=== PATIENT | female | born 1995 | race Caucasian/White ===

== ENCOUNTER 2020-02-06 09:41 | Observation (INO) | payer OTHER, SELFPAY ==
[2020-02-06] VITALS (7 sets, daily range): BP systolic 96–127; BP diastolic 70–101; PULSE 67–85; TEMP 36.6; BMI 36.0
--- NOTE | 2020-02-06 09:56 | OBADM ---
This patient, Avis Thapa, admitted to the OB room OB Post 117 for observation. Patient/family oriented to hospital policies and general routines including ID bracelet, bed and alarms, visiting hours, pain management, procedures, bathroom and other care routines, personal items, smoking policy, room service/diet, and visiting hours. Patient/Family are encouraged to report perceived risks to care and to ask questions if they do not understand what they are told or what they should do.
[2020-02-06 10:23] LABS: Add Urine Microscopic? YES; Appearance Urine Cloudy (Clear); Bacteria Urine 2+ /hpf; Bilirubin Urine Negative (Negative); Blood Urine 2+ (Negative); Color Urine Yellow (Yellow); Glucose Urine UA Negative (Negative); Ketones Urine Negative (Negative); Leukocyte Esterase Ur Negative LEU/UL (NEGATIVE); Mucus Urine Rare /lpf; Nitrate Urine Negative (Negative); Protein Urine Negative (Negative); RBC Urine 51-75 /hpf (0-2); Specific Grav Ur 1.011 (1.001-1.035); Squamous Epithelial Cell Urine Moderate /hpf (Few); Urobilinogen Urine Negative mg/dL (<2.0)
[2020-02-06] MEDS: NITROFURANTOIN MONOHYD MACROCR 100 MG CAP PO (11:52)
--- NOTE | 2020-02-15 09:18 | P.PNOB_ITS ---
OB - Triage/Final Diagnosis Visit Information Date of evaluation: 02/06/20 Reason for evaluation: threatened labor Evaluation Laboratory results: Laboratory Tests 02/06/20 10:11 Urine Color Yellow Urine Appearance Cloudy H Urine pH 7.0 Ur Specific [place] 1.011 Urine Protein Negative Urine Glucose (UA) Negative Urine Ketones Negative Ur Blood (Man) 2+ H Urine Nitrate Negative Urine Bilirubin Negative Urine Urobilinogen Negative Ur Leukocyte Esterase Negative Urine RBC 51-75 H Urine WBC 7-9 H Ur Squamous Epith Cells Moderate H Urine Bacteria 2+ H Urine Mucus Rare
== END 2020-02-06 11:55 | disposition home or self-care (01) ==
LOC: ANHOBPP 11:43 → ANHLDR 17:56
PROVIDERS: Admitting Provider Student in an Organized Health Care Education/Training Program; Visit Provider Student in an Organized Health Care Education/Training Program
DX: O47.03 False labor before 37 completed weeks of gestation, third trimester (principal); Z3A.34 34 weeks gestation of pregnancy
CPT/HCPCS: 81001; 87086; 87088; A9270; G0378; G0379

== ENCOUNTER 2020-03-05 08:49 | Inpatient (IN) | payer OTHER, SELFPAY ==
[2020-03-05] VITALS (92 sets, daily range): BP systolic 98–163; BP diastolic 12–137; PULSE 64–104; TEMP 36.8–37.1; O2SAT 96–100; BMI 38.5
[2020-03-05] MEDS: miSOPROStol 25 MCG TABLET VAGINAL (10:27)
[2020-03-05 10:31] LABS: Basophils Percent Auto 0.1 % (0.2-1.2); Eosinophils Absolute Auto 0.1 K/mm3 (0-0.3); Eosinophils Percent Auto 0.9 % (0-4.4); Hematocrit 33.5 % (37.0-47.0); Hemoglobin 11.3 g/dL (12.0-15.0); Immature Granulocyte Absolute 0.05 K/mm3 (0.00-0.031); Immature Granulocyte Percent A 0.6 % (0-0.5); Lymphocytes Absolute Auto 1.14 K/mm3 (0.9-3.2); Lymphocytes Percent Auto 13.5 % (18.3-44.2); Mean Corpuscular HGB Conc 33.7 g/dl (32-36); Mean Corpuscular Hemoglobin 28.5 pg (26-34); Mean Corpuscular Volume 84.6 fl (80-100); Mean Platelet Volume 11.4 fl (7.4-10.4); Monocytes Absolute Auto 0.6 K/mm3 (0.1-0.6); Monocytes Percent Auto 6.6 % (2.6-8.5); Neutrophils Absolute Auto 6.6 K/mm3 (1.3-6.7); Neutrophils Percent Auto 78.3 % (45.5-73.1); Platelet Count Result 224 k/mm3 (150-375); Red Blood Count 3.96 M/mm3 (4.2-5.4); Red Cell Distribution Width 13.5 % (11.5-14.5); White Blood Count 8.5 K/mm3 (4.5-10.0)
[2020-03-05 10:44] LABS: Uric Acid 4.1 mg/dL (2.5-7.5)
[2020-03-05] MEDS: LACTATED RINGERS 1,000 ML 125 ML IV CONT (10:52)
[2020-03-05] MEDS: AMPICILLIN 2 GM/NS 100 ML 2 GM/100 ML BAG IVPB (10:52)
--- NOTE | 2020-03-05 10:58 | WPDHPUPDATE1 ---
History and Physical Update Update Date/Time: 03/05/20 10:58 24 yo at 38w0d who presents for IOL due to worsening gestational HTN. Pt was seen in the office today and was noted to have BP of 160/99. She reports a persistent REY since last Tuesday. She reports a large increase in LE edema. She denies any scotoma or RUQ pain. Pt G1 was complicated by PP HTN. Pt was noted to have 1+ protein on UA in the office. She endorses good FM and denies vaginal bleeding or leakage of fluid. History and Physical has been reviewed, including an updated exam of the patient. There are NO changes in the patient's condition. Risks, benefits, and alternatives have been discussed and questions answered. Patient agrees to proceed with procedure. A/P: 24 yo at 38w0d with worsening GHTN admit to L&D routine admission orders Rh+ GBS +, will need PCN in labor PIH labwork plan for IOL due to worsening BP continue to monitor BP, if continues to have severe range BP with proteinuria, will start magnesium cvx 1cm, plan for cytotec ripening FHT cat 1 no ctx on toco continuous EFM
[2020-03-05 11:11] LABS: Creatinine Urine 63.6 mg/dL; Total Protein Urine Random 33 mg/dL
[2020-03-05 11:24] LABS: Alanine Aminotransferase 12 U/L (4-35); Albumin Level 3.4 g/dL (3.5-5.1); Alkaline Phosphatase 193 U/L (38-126); Anion Gap 6 mmol/L (8-16); Aspartate Amino Transferase 18 U/L (14-36); Bilirubin,Total 0.3 mg/dL (0.2-1.3); Blood Urea Nitrogen 7 mg/dL (7-17); Calcium 9.5 mg/dL (8.4-10.2); Carbon Dioxide 21 mmol/L (22-30); Chloride 109 mmol/L (98-107); Estimated CRCL calculation 149 ml/min; Estimated Glomerular Filt Rate > 60; Glucose 88 mg/dL (65-105); Potassium 3.7 mmol/L (3.4-5.0); Sodium 136 mmol/L (137-145)
--- NOTE | 2020-03-05 11:37 | WPDANESEPP ---
Anes - Eval Pre Procedure Procedure: labor epidural Date/Time: 03/05/20 11:37 Surgeon: berna Preop Diagnosis: pain during labor Pre Op Diagnosis: Induction of Labor Patient Data Age: 24 Gender: F Height: 1.55 m Weight: 92.5 kg Last Vital Signs Temp 36.8 C 03/05/20 10:00 Pulse 81 03/05/20 11:30 BP 152/94 H 03/05/20 11:30 Allergies Allergy/AdvReac Type Severity Reaction Status Date / Time bee venom protein (honey bee) Allergy Mild swelling Verified 02/27/20 13:31 venom-wasp Allergy Unknown swelling Verified 02/27/20 13:31 Soy Milk Allergy Mild hives Uncoded 05/28/17 15:21 Home Medications Medication Instructions Recorded Confirmed Type PNV cmb#95-ferrous fumarate-FA 1 tablet PO DAILY 02/27/20 02/27/20 History [] Laboratory Tests 03/05/20 03/05/20 03/05/20 10:17 10:17 10:17 WBC 8.5 K/mm3 K/mm3 (4.5-10.0) RBC 3.96 M/mm3 L M/mm3 (4.2-5.4) Hgb 11.3 g/dL L g/dL (12.0-15.0) Hct 33.5 % L % (37.0-47.0) MCV 84.6 fl fl (80-100) MCH 28.5 pg pg (26-34) MCHC 33.7 g/dl g/dl (32-36) RDW 13.5 % % (11.5-14.5) Plt Count 224 k/mm3 k/mm3 (150-375) MPV 11.4 fl H fl (7.4-10.4) Immature Gran % (Auto) 0.6 % H % (0-0.5) Neut % (Auto) 78.3 % H % (45.5-73.1) Lymph % (Auto) 13.5 % L % (18.3-44.2) [place] % (Auto) 6.6 % % (2.6-8.5) Eos % (Auto) 0.9 % % (0-4.4) Baso % (Auto) 0.1 % L % (0.2-1.2) Lymph # (Auto) 1.14 K/mm3 K/mm3 (0.9-3.2) [place] # (Auto) 0.6 K/mm3 K/mm3 (0.1-0.6) Eos # (Auto) 0.1 K/mm3 K/mm3 (0-0.3) Baso # (Auto) 0.0 K/mm3 K/mm3 (0.0-0.1) Abs Immat Gran (auto) 0.05 K/mm3 H K/mm3 (0.00-0.031) Absolute Neuts (auto) 6.6 K/mm3 K/mm3 (1.3-6.7) Absolute Nucleated RBC 0.0 K/mm3 K/mm3 (0.0-0.012) Nucleated RBC % 0.0 % % (0.0-0.2) Sodium Potassium Chloride Carbon Dioxide Anion Gap BUN Creatinine Estim Creat Clear Calc Estimated GFR Glucose Uric Acid 4.1 mg/dL mg/dL (2.5-7.5) Calcium Total Bilirubin AST ALT Alkaline Phosphatase Total Protein Albumin U Random Total Protein Urine Creatinine RPR Pending 03/05/20 03/05/20 10:17 10:17 WBC RBC Hgb Hct MCV MCH MCHC RDW Plt Count MPV Immature Gran % (Auto) Neut % (Auto) Lymph % (Auto) [place] % (Auto) Eos % (Auto) Baso % (Auto) Lymph # (Auto) [place] # (Auto) Eos # (Auto) Baso # (Auto) Abs Immat Gran (auto) Absolute Neuts (auto) Absolute Nucleated RBC Nucleated RBC % Sodium 136 mmol/L L mmol/L (137-145) Potassium 3.7 mmol/L mmol/L (3.4-5.0) Chloride 109 mmol/L H mmol/L (98-107) Carbon Dioxide 21 mmol/L L mmol/L (22-30) Anion Gap 6 mmol/L L mmol/L (8-16) BUN 7 mg/dL mg/dL (7-17) Creatinine 0.50 mg/dL L mg/dL (0.7-1.0) Estim Creat Clear Calc 149 ml/min ml/min Estimated GFR > 60 (59 - ) Glucose 88 mg/dL mg/dL (65-105) Uric Acid Calcium 9.5 mg/dL mg/dL (8.4-10.2) Total Bilirubin 0.3 mg/dL mg/dL (0.2-1.3) AST 18 U/L U/L (14-36) ALT 12 U/L U/L (4-35) Alkaline Phosphatase 193 U/L H U/L (38-126) Total Protein 6.0 g/dL L g/dL (6.3-8.2) Albumin 3.4 g/dL L g/dL (3.5-5.1) U Random Total Protein 33 mg/dL mg/dL Urine Creatinine 63.6 mg/dL mg/dL R
[2020-03-05] MEDS: AMPICILLIN 1 GM/NS 50 ML 1 GM/50 ML BAG IVPB ×3 (14:48→22:45)
--- NOTE | 2020-03-05 15:21 | PM.OBPNLAB ---
Pain Control Date/time seen: 03/05/20 15:21 Pain control: tolerating well Pelvic Exam Dilation (cm): 1 Effacement (%): 50 station: -3 Amniotic membrane status: Intact Contractions Monitor mode: External Contraction frequency: 4 Status status: Category l Assessment and Plan Assessment: induction ongoing Comments: cvx unchanged after 1 cytotec, will place another dose of cytotec.
[2020-03-05] MEDS: miSOPROStol 50 MCG TABLET VAGINAL (15:28)
[2020-03-05] MEDS: LACTATED RINGERS 1,000 ML 75 ML IV CONT (18:45)
[2020-03-05] MEDS: MAGNESIUM SULF 6 GM/WATER150ML 6 GM/150 ML BAG IVPB (18:45)
[2020-03-05] MEDS: MAGNESIUM SULF 20GM/WATER500ML 500 ML 50 MG IV CONT (19:15)
[2020-03-05] MEDS: ACETAMINOPHEN 500 MG TABLET 1000 MG PO (19:34)
[2020-03-05] MEDS: OXYTOCIN 30 UNITS/NS 500 ML 30 UNITS/500 ML BAG IV CONT (19:50)
--- NOTE | 2020-03-05 21:05 | WPDANESEFPP ---
Anes - Eval Final PreProcedure Day of Procedure 03/05/20 21:05 Patient weight: obese Heart: regular rate and rhythm Lungs: clear to auscultation Neurological: alert and oriented ASA classification: II Emergent: no Anesthetic plan: proceed Anesthesia type and monitoring: regional epidural and standard monitoring Informed Consent: The patient's anesthetic plan and its attendant risks and benefits were discussed with the patient/family/POA. Questions were solicited and answers provided to the satisfaction of the patient/family/POA.
[2020-03-06] VITALS (63 sets, daily range): BP systolic 123–157; BP diastolic 69–102; PULSE 68–109; RESP 16–18; TEMP 36.4–36.9; O2SAT 93–100
[2020-03-06] MEDS: MAGNESIUM SULF 20GM/WATER500ML 500 ML 50 MG IV CONT ×3 (02:45→23:01)
[2020-03-06] MEDS: AMPICILLIN 1 GM/NS 50 ML 1 GM/50 ML BAG IVPB (02:45)
[2020-03-06] MEDS: ACETAMINOPHEN 500 MG TABLET 1000 MG PO (02:46)
[2020-03-06] MEDS: ONDANSETRON INJ 4 MG/2 ML VIAL IV PUSH (02:50)
--- NOTE | 2020-03-06 03:52 | P.PCNOB_ITS ---
OB - Delivery Note Procedure Procedure: Patient pushed for a spontaneous vaginal delivery. The fetus was delivered atraumatically and placed on the maternal abdomen. The cord was clamped and cut after 1 minute of life. The cord was double clamped and cut and a segment of cord was collected for cord gases. Cord blood was collected for blood type and Coomb's testing. The placenta delivered spontaneously and was noted to be intact. The perineum was inspected and there were no lacerations noted. The uterus was firm and good hemostasis was noted. The patient and fetus were stable in the delivery room. events: Pre-Eclampsia Intrapartal events: Severe Preeclampsia Induction method: per misoprostol protocol Delivery augmentation: pitocin Delivery monitor: external FHT Route of delivery: Episiotomy description: None Laceration description: None Specimen: No Estimated blood loss (mL): 250 Anesthesia type: Epidural Disposition: floor () Complications: No immediate complications [place] Baby Date of : 03/06/20 Time of : 03:42 Weeks of gestation at delivery: 38 gender: Male Weight (pounds): 6 Weight (ounces): 13 presentation: vertex position: Right Occiput Anterior Placenta delivery description: Spontaneous cord vessel description: Around Body x1 score one minute: 9 score five minutes: 9
[2020-03-06] MEDS: OXYTOCIN 30 UNITS/NS 500 ML 30 UNITS/500 ML BAG 125 UNITS IV CONT (04:21)
[2020-03-06 09:37] LABS: Rapid Plasma Reagin Non-Reactive (NonReactive)
[2020-03-06] MEDS: SERTRALINE HCL 50 MG TABLET PO (09:52)
--- NOTE | 2020-03-06 12:50 | PC.NURSE ---
Addendum entered by Micha Peralta RN 03/06/20 14:25: actual time of arrival on unit is 1250 Original Note: PT arrived on unit via wheelchair accompanied by both fob and infant and taken to room 282. PT introductions made and plan of care discussed per post , pain management, breast feeding, PIH symptoms. daily care activities. PT verbalized understanding of such care.
[2020-03-06] MEDS: IBUPROFEN 600 MG TABLET PO (13:56)
[2020-03-06] MEDS: DOCUSATE SODIUM 100 MG CAPSULE PO (13:58)
[2020-03-06] MEDS: MULTIVIT/MIN/PREN/FOL AC/IRON TABLET 1 TAB PO (13:58)
[2020-03-06] MEDS: LACTATED RINGERS 1,000 ML 75 ML IV CONT (20:19)
[2020-03-07 03:50] VITALS: BP 146/96; PULSE 73
[2020-03-07 05:25] LABS: Basophils Percent Auto 0.1 % (0.2-1.2); Eosinophils Absolute Auto 0.2 K/mm3 (0-0.3); Hematocrit 31.3 % (37.0-47.0); Hemoglobin 10.4 g/dL (12.0-15.0); Immature Granulocyte Absolute 0.05 K/mm3 (0.00-0.031); Immature Granulocyte Percent A 0.5 % (0-0.5); Lymphocytes Absolute Auto 1.86 K/mm3 (0.9-3.2); Lymphocytes Percent Auto 19.3 % (18.3-44.2); Mean Corpuscular HGB Conc 33.2 g/dl (32-36); Mean Corpuscular Hemoglobin 28.3 pg (26-34); Mean Corpuscular Volume 85.3 fl (80-100); Mean Platelet Volume 11.5 fl (7.4-10.4); Monocytes Absolute Auto 0.7 K/mm3 (0.1-0.6); Monocytes Percent Auto 7.2 % (2.6-8.5); Neutrophils Absolute Auto 6.8 K/mm3 (1.3-6.7); Neutrophils Percent Auto 70.9 % (45.5-73.1); Platelet Count Result 212 k/mm3 (150-375); Red Blood Count 3.67 M/mm3 (4.2-5.4); Red Cell Distribution Width 13.6 % (11.5-14.5); White Blood Count 9.6 K/mm3 (4.5-10.0)
[2020-03-07 05:43] LABS: Alanine Aminotransferase 10 U/L (4-35); Albumin Level 2.8 g/dL (3.5-5.1); Alkaline Phosphatase 175 U/L (38-126); Anion Gap 4 mmol/L (8-16); Aspartate Amino Transferase 20 U/L (14-36); Bilirubin,Total 0.3 mg/dL (0.2-1.3); Blood Urea Nitrogen 6 mg/dL (7-17); Calcium 7.7 mg/dL (8.4-10.2); Carbon Dioxide 24 mmol/L (22-30); Chloride 105 mmol/L (98-107); Estimated CRCL calculation 126 ml/min; Estimated Glomerular Filt Rate > 60; Glucose 85 mg/dL (65-105); Potassium 3.3 mmol/L (3.4-5.0); Sodium 133 mmol/L (137-145); Uric Acid 4.3 mg/dL (2.5-7.5)
[2020-03-07 06:21] VITALS: BP 146/96; PULSE 73
[2020-03-07] MEDS: IBUPROFEN 600 MG TABLET PO (07:25)
[2020-03-07] MEDS: MULTIVIT/MIN/PREN/FOL AC/IRON TABLET 1 TAB PO (07:25)
[2020-03-07] MEDS: SERTRALINE HCL 50 MG TABLET PO (07:25)
[2020-03-07 08:10] VITALS: BP 134/85; PULSE 81; RESP 16; TEMP 36.6; O2SAT 99
--- NOTE | 2020-03-07 09:00 | PC.NURSE ---
Observed mother is able to independently latch with appropriate positioning/alignment. Mother reports breastfeed for 2 months with first child then bottle and breastfed due to low milk supply. She denies any nipple discomfort, is feeding as required and waking to feed if needed. has had at least 8 effective feedings in the past 24 hours, and is currently meeting outcomes for weight, output, jaundice and feeding frequencies. Mother states she feels confident to continue effective at home. Reviewed transition to breast milk, signs of adequate intake, and engorgement/relief. Instructed to call ICP if intake/output less than required. Reviewed regular medications mother is taking. Information provided per Marlene. Reviewed community resources on the [facility] website and in the Mom/Baby guide. Information on outpatient services provided. Mother has no further questions at this time.
--- NOTE | 2020-03-07 09:23 | WPDANLDPN2 ---
Anes-Prog Note L&D Date/Time: 03/07/20 09:23 Comfortable throughout: labor and delivery Neuraxial method: epidural Epidural/Spinal procedure site: clean & non-tender Neuro status: Neuro function grossly intact. Cardiovascular status: normal Respiratory status: normal Airway patency: baseline Mental status: baseline Post-Op hydration status: normal Vital Signs: Last Vital Signs Temp 36.7 C 03/06/20 19:25 Pulse 73 03/07/20 06:21 Resp 16 03/06/20 19:25 BP 146/96 H 03/07/20 06:21 Pulse Ox 100 03/06/20 19:25 Pain score (VAS): 1 I/O: Intake & Output 03/06/20 03/07/20 03/07/20 23:59 07:59 15:59 Intake Total 500 Output Total 1200 Balance -700 Post-procedural complaints: none Patient feedback: Patient satisfied with anesthetic care.
[2020-03-07 11:38] VITALS: BP 136/88; PULSE 77; RESP 16; TEMP 36.7; O2SAT 98
--- NOTE | 2020-03-07 12:34 | PM.OBDSVD ---
DS: Admitting Diagnosis Admitting Diagnosis Admitting Diagnosis: IUP at term Preeclampsia DS: Discharge Diagnosis Discharge Diagnosis (1) (normal spontaneous vaginal delivery): Code(s): O80 - Encounter for full-term uncomplicated delivery Status: Acute (2) Preeclampsia: Code(s): O14.90 - Unspecified pre-eclampsia, unspecified trimester Status: Acute OB - DS: Summary OB Procedures : PIH Mgmt OB Procedures Intrapartum: Spontaneous Vag Delivery OB Procedures: : None DS: Data Data Completed and Pending Labs on day of discharge: Labs from last 24 hours 03/07/20 03/07/20 04:21 04:21 WBC 9.6 RBC 3.67 L Hgb 10.4 L Hct 31.3 L MCV 85.3 MCH 28.3 MCHC 33.2 RDW 13.6 Plt Count 212 MPV 11.5 H Immature Gran % (Auto) 0.5 Neut % (Auto) 70.9 Lymph % (Auto) 19.3 [place] % (Auto) 7.2 Eos % (Auto) 2.0 Baso % (Auto) 0.1 L Lymph # (Auto) 1.86 [place] # (Auto) 0.7 H Eos # (Auto) 0.2 Baso # (Auto) 0.0 Abs Immat Gran (auto) 0.05 H Absolute Neuts (auto) 6.8 H Absolute Nucleated RBC 0.0 Nucleated RBC % 0.0 Sodium 133 L Potassium 3.3 L Chloride 105 Carbon Dioxide 24 Anion Gap 4 L BUN 6 L Creatinine 0.60 L Estim Creat Clear Calc 126 Estimated GFR > 60 Glucose 85 Uric Acid 4.3 Calcium 7.7 L Total Bilirubin 0.3 AST 20 ALT 10 Alkaline Phosphatase 175 H Total Protein 5.0 L Albumin 2.8 L Discharge Plan Discharge Attending physician on discharge: Edwar Alcantara Discharging Clinician: Dio Kennedy Patient Disposition: Home, Self-Care Activity: pelvic rest Diet: regular Discharge Instructions: Call or return if temperature above 100.4? F, increased abdominal pain, increased vaginal bleeding or any new problems. Stand Alone Forms: General Discharge Information Follow-up/Referrals: Edwar Alcantara MD [Physician] - (6 weeks) Discharge Medications: New ibuprofen 600 mg tablet 600 mg PO Q6H PRN (Reason: cramps) Qty: 30 RF: 0 No Action PNV cmb#95-ferrous fumarate-FA [] 28 mg iron- 800 mcg Tablet 1 tablet PO DAILY RF: 0 Date of admission: 03/05/20 08:49 Primary Care Provider: PHYSICIAN,TECHNOLOGY PROJECT MANAGER Admitting Provider: Edwar Alcantara Attending physician on admission: Edwar Alcantara
--- NOTE | 2020-03-07 12:36 | PM.OBPNVD ---
OB - PN: Subj Subjective Date/time seen: 03/07/20 12:36 Narrative: Pain OK. Would like circumcision for son. Also would like to go home this evening. No headache, no visual field change, no epigastric pain. Swelling in legs has improved dramatically. OB - PN: Obj Data Labs CBC & Chem 7: 03/07/20 04:21 03/07/20 04:21 Labs: Laboratory Results - last 24 hr 03/07/20 03/07/20 04:21 04:21 WBC 9.6 RBC 3.67 L Hgb 10.4 L Hct 31.3 L MCV 85.3 MCH 28.3 MCHC 33.2 RDW 13.6 Plt Count 212 MPV 11.5 H Immature Gran % (Auto) 0.5 Neut % (Auto) 70.9 Lymph % (Auto) 19.3 [place] % (Auto) 7.2 Eos % (Auto) 2.0 Baso % (Auto) 0.1 L Lymph # (Auto) 1.86 [place] # (Auto) 0.7 H Eos # (Auto) 0.2 Baso # (Auto) 0.0 Abs Immat Gran (auto) 0.05 H Absolute Neuts (auto) 6.8 H Absolute Nucleated RBC 0.0 Nucleated RBC % 0.0 Sodium 133 L Potassium 3.3 L Chloride 105 Carbon Dioxide 24 Anion Gap 4 L BUN 6 L Creatinine 0.60 L Estim Creat Clear Calc 126 Estimated GFR > 60 Glucose 85 Uric Acid 4.3 Calcium 7.7 L Total Bilirubin 0.3 AST 20 ALT 10 Alkaline Phosphatase 175 H Total Protein 5.0 L Albumin 2.8 L OB - PN A/P Plan Comments: A: PPD#1, doing well. Preeclampsia, resolving. P: Routine care. Reviewed circumcision. Home to f/u in 2-3 days for bp check. Reviewed instructions and precautions in detail. Exam Psych: Other: AVSS Urine output great ABD soft, nontender, fundus firm EXT nontender
[2020-03-07 15:30] VITALS: BP 146/87; PULSE 90; RESP 18; O2SAT 100
--- NOTE | 2020-03-07 17:14 | PC.NURSE ---
Patient instructed on viewing the discharge video Mother & Baby Care, The First Two Weeks . Patient was given the opportunity and encouraged to ask questions. Patient verbalized understanding of information shared and has been given the mother/baby guide for home reference.
[2020-03-10 08:46] VITALS: BP 153/96; PULSE 86; RESP 20; TEMP 37.1; O2SAT 100
== END 2020-03-07 17:40 | disposition home or self-care (01) | DRG 807 ==
LOC: ANHOBPP 03-06 10:57 → ANHOB2 03-07 12:34 → ANHLDR 03-07 20:45 → ANHOB2 03-07 20:45 → ANHOBPP 03-07 20:45
PROVIDERS: Admitting Provider Student in an Organized Health Care Education/Training Program; Visit Provider Obstetrics & Gynecology
DX: O13.4 Gestational [pregnancy-induced] hypertension without significant proteinuria, complicating childbirth (principal); Z37.0 Single live birth; O14.94 Unspecified pre-eclampsia, complicating childbirth; O99.824 Streptococcus B carrier state complicating childbirth; O77.0 Labor and delivery complicated by meconium in amniotic fluid; O69.82X0 Labor and delivery complicated by other cord entanglement, without compression, not applicable or unspecified; O99.214 Obesity complicating childbirth; E66.9 Obesity, unspecified; Z3A.38 38 weeks gestation of pregnancy
CPT/HCPCS: 36415; 80053; 82570; 84156; 84550; 85025; 86592; 86850; 86900; 86901; A9270; J0290; J2405; J2590; J3475; J7120

== ENCOUNTER 2020-03-08 11:13 | Outpatient (CLI) | payer OTHER, SELFPAY ==
[2020-03-08 11:40] VITALS: BP 167/105; PULSE 81
[2020-03-08 11:53] VITALS: BP 163/98; PULSE 78
[2020-03-08 12:12] VITALS: BP 163/98; PULSE 78
--- NOTE | 2020-03-08 12:13 | PC.NURSE ---
1146- Dr. Kennedy notified of pt's admission for a blood pressure check per discharge instructions. New orders received to repeat blood pressure and call back with results. 1155- Dr. Kennedy notified of pt's repeat blood pressure. New orders received to discharge pt home with a prescription being sent by Dr. Kennedy to pt's preferred pharmacy and to follow up as scheduled on Tuesday to recheck blood pressure again.
== END 2020-03-08 12:30 | disposition home or self-care (01) ==
LOC: ANHOBOP 11:22 → ANHOBPP 11:23
PROVIDERS: Visit Provider Student in an Organized Health Care Education/Training Program
DX: O13.4 Gestational [pregnancy-induced] hypertension without significant proteinuria, complicating childbirth (principal)
CPT/HCPCS: 99199

== ENCOUNTER 2022-07-23 01:22 | Day surgery (SDC) | payer OTHER, SELFPAY ==
[2022-07-14 09:19] VITALS: BMI 31.1
--- NOTE | 2022-07-14 09:24 | PC.NURSE ---
Report to the Outpatient Waiting Room, entrance under the green pavilion located off [facility], at time 0900 on date 07/23/22. Planned Procedure Time: 1100. Time changes happen often and if your time is changed the preop area will call you the afternoon before. - You and your visitor will be asked to self-screen and do not enter if you have any COVID symptoms. - Only one visitor is requested with a max of two and NO children visitors are allowed at this time. - The patient visitor may be requested to leave or wait in car when not with patient due to distancing restrictions. - A mask is optional within the hospital at this time. Patients may have clear liquids (water, carbonated beverages, clear teas, apple juice) until 3 hours prior to surgery with a maximum of 20 ounces. - No food from midnight until time of surgery Take the following medications with a SIP of water the morning of surgery: N/A DO NOT STOP ANY OF YOUR OTHER PRESCRIPTION MEDICATIONS PRIOR TO SURGERY EXCEPT THE FOLLOWING Medications to discontinue per physician: N/A Date to take last dose: N/A Please no make-up, nail swazi, hairspray, perfume, deodorant, or body powder the day of surgery. No jewelry (including any body piercings) or valuables the day of surgery, leave them at home. Please take a shower or bath the night before, or the morning of, surgery with an antibacterial soap. Wear comfortable, loose fitting clothing. - Jewelry must be removed prior to entering the operating room. Rings and piercings that are not removed may be cut off. - The hospital will not accept responsibility for valuables. - Please leave all valuables, including medications, at home the day of surgery. If you are going home after surgery, a licensed limo driver must drive you home. - NO public transportation without another adult if you receive anesthesia. - We recommend that an adult stay with you for 24 hours following discharge. - We also recommend that you do not drive, make important decision, drink alcoholic beverages, or take any drugs that were not prescribed by your health care provider for at least 24 hours after your discharge time. Follow any additional instructions given to you from your surgeon. If you or anyone in your household have experienced Covid symptoms in the past week, please notify your surgeon or the nurse liaison at the phone number below for possible testing. Telephone instructions given to MARGE LEDEZMA and asked if any additional questions and then verbalized understanding. Patient advised to call surgeon office or pre surgery nurse liaison [phone] if any additional questions.
--- NOTE | 2022-07-21 11:33 | PM.IMHP ---
H&P: HPI History of Present Illness Date/Time: 07/21/22 11:33 Chief Complaint: Desires sterilization Narrative: A 26-year-old with 2 previous pregnancies that were complicated by severe hypertension during . She desires permanent and irreversible control in the form of tubal ligation. Alternatives including not exclusive of pills, patches, injections, implants, long-acting contraceptives, etc. were all reviewed. She understands this to be a permanent irreversible procedure with a failure rate of 08/999. Risk for this procedure were given including but not exclusive of , aspiration pneumonia, bleeding, transfusion, perforation injury to bowel, bladder, ureters, or other internal organs with the need for open laparotomy. She received the ACOG handout entitled sterilization for men and women. She had all questions answered. She asked to proceed PMF Family History Family History Mother Hypertension Grandparent Family history of cardiovascular disease Family history of malignant neoplasm of skin Family history of lymphoma Family history of throat cancer Diabetes mellitus Gout Social History Social History Smoking status: Never smoker Second hand tobacco smoke exposure: No Alcohol intake: current Alcohol use details: SPECIAL OCCASIONS Substance use: never Substance use type: does not use Living arrangements: with family Spiritual care concerns: No Meds Home Medications and Allergies Home Medications Medication Instructions Recorded Confirmed Type No Home Medications 07/14/22 07/14/22 History Allergies Allergy/AdvReac Type Severity Reaction Status Date / Time bee venom protein (honey bee) Allergy Mild swelling Verified 07/14/22 09:18 venom-wasp Allergy Unknown swelling Verified 07/14/22 09:18 Soy Milk Allergy Mild hives Uncoded 07/14/22 09:18 Exam Const: General: cooperative, healthy appearing and comfortable Nutritional Appearance: average body habitus Orientation/consciousness: oriented to person, oriented to place and oriented to time HENMT: Head: normal to inspection Resp: Effort & Inspection: normal respiratory effort Cardio: Rate: regular rate Rhythm: regular rhythm Heart sounds: S1 normal heart sound present and S2 normal heart sound present GI: Inspection: normal to inspection : External Female Exam: normal external appearance Speculum Exam - Vagina: normal appearance of the vagina Speculum Exam - Cervix: normal appearance of the cervix Bimanual exam- vagina & uterus: uterine size normal Bimanual Exam- Adnexa, other: normal adnexae Assessment and Plan Assessment and plan (1) Sterilization: Code(s): Z30.2 - Encounter for sterilization Status: Acute Plan Laparoscopic bilateral tubal ligation
[2022-07-23] VITALS (13 sets, daily range): BP systolic 106–133; BP diastolic 58–89; PULSE 50–80; RESP 12–18; TEMP 36.2–36.8; O2SAT 94–100
--- NOTE | 2022-07-23 07:10 | WPDHPUPDATE1 ---
History and Physical Update Update Date/Time: 07/23/22 07:10 History and Physical has been reviewed, including an updated exam of the patient. There are NO changes in the patient's condition. Risks, benefits, and alternatives have been discussed and questions answered. Patient agrees to proceed with procedure.
[2022-07-23] MEDS: ACETAMINOPHEN 500 MG TABLET 1000 MG PO (07:52)
[2022-07-23] MEDS: KETOROLAC 15 MG/ML VIAL (*BKC) IV PUSH (07:52)
[2022-07-23] MEDS: LACTATED RINGERS 1,000 ML 30 ML IV CONT ×2 (08:00→10:10)
--- NOTE | 2022-07-23 08:57 | WPDANESEPPF ---
Anes - Initial Pre Proc Eval Procedure: Operation Date: 07/23/22 09:30 Proposed Procedures p Laparoscopic Bilateral Tubal Ligation - Joaquin Honeycutt MD Date/Time: 07/23/22 08:57 Surgeon: Joaquin Honeycutt MD Pre Op Diagnosis: desires sterilization Patient Data Age: 26 Gender: F Height: 1.55 m Weight: 75.1 kg Last Vital Signs Temp 36.8 C 07/23/22 08:00 Pulse 70 07/23/22 08:00 Resp 16 07/23/22 08:00 BP 106/58 L 07/23/22 08:00 Pulse Ox 100 07/23/22 08:00 O2 Del Method Room Air 07/23/22 08:00 Allergies Allergy/AdvReac Type Severity Reaction Status Date / Time bee venom protein (honey bee) Allergy Mild swelling Verified 07/23/22 08:45 venom-wasp Allergy Unknown swelling Verified 07/23/22 08:45 Soy Milk Allergy Mild hives Uncoded 07/23/22 08:45 Home Medications Medication Instructions Recorded Confirmed Type hydrocodone 5 mg-acetaminophen 325 1 tablet PO Q4H PRN pain #20 tabs 07/23/22 Rx mg tablet Patient hx anesthesia problems: none Family hx anesthesia problems: none Results Review: All pre-operative results and documents have been reviewed as part of the pre-operative evaluation. [facility] Family History Family History Mother Hypertension Grandparent Family history of cardiovascular disease Family history of malignant neoplasm of skin Family history of lymphoma Family history of throat cancer Diabetes mellitus Gout Social History Social History Smoking status: Never smoker Second hand tobacco smoke exposure: No Alcohol intake: current Alcohol use details: SPECIAL OCCASIONS Substance use: never Substance use type: does not use Living arrangements: with family Spiritual care concerns: No Anes - Eval Final PreProcedure Day of Procedure 07/23/22 08:57 Patient weight: overweight Heart: regular rate and rhythm Lungs: clear to auscultation Airway: Mallampati scale class II Neurological: alert and oriented Last oral intake: >/= 8 hours ASA classification: II Emergent: no Anesthetic plan: proceed Anesthesia type and monitoring: general ETT and standard monitoring Results Review: All pre-operative results and documents have been reviewed as part of the pre-operative evaluation. Informed Consent: The patient's anesthetic plan and its attendant risks and benefits were discussed with the patient/family/POA. Questions were solicited and answers provided to the satisfaction of the patient/family/POA.
--- NOTE | 2022-07-23 10:02 | W.PM.PROC2 ---
Procedure Note - Detailed Date of Procedure 07/23/22 Pre-op Diagnosis desires sterilization Post-op Diagnosis Same Procedure Performed Prostatic bilateral tubal ligation with silastic rings Surgeon Joaquin Honeycutt MD Anesthesia General Indications this is a 26-year-old multipara desires permanent irreversible sterilization Findings normal-appearing ovaries tubes and uterus Description of Procedure the patient was prepped draped in normal sterile fashion placed in dorsal lithotomy position. General trach anesthesia weighted speculum placed in posterior fornix vagina. Anterior lip of the cervix grasped with single-tooth tenaculum. The Larson's cannula was inserted the cervix and attached to the single-tooth to be used later for uterine manipulation. Out the bladder emptied of clear urine in the weighted speculum was removed. The gloves were changed. An infraumbilical incision made. The Veress needle passed in the abdomen. Abdomen filled with CO2 gas [id number]. 5mm trocar advanced under direct visualization with the optic scope in no injury seen. Patient placed in Trendelenburg and a suprapubic incision made. The 8mm trocar advanced under direct visualization assuring no injury the right fallopian tube was grasped and a good knuckle of tube formed with a silastic band. Excellent blanching was seen. The left fallopian tube was then grasped and the fallopian ring placed at the midportion with good blanching as well. Photo documentation was undertaken. The ovaries appeared within normal limits as did the appendix liver and gallbladder which were all photo documented. The lower site removed. The gas removed from the abdomen. The incisions closed with 4 Monocryl glue. The instruments removed from vagina and the patient was awakened. She went to recovery in satisfactory condition. All sponge, needle, instrument counts were correct. There were no immediate complications noted Estimated Blood Loss 5 Drains No Packing No Pathology None sent Complications No immediate complications Condition Stable Disposition PACU
[2022-07-23] MEDS: fentaNYL CITRATE INJ (*CRX) 100 MCG/2 ML VIAL 25 MCG IV PUSH ×4 (10:30→11:03)
[2022-07-23] MEDS: oxyCODONE HCL (*CRX) 5 MG TAB IR PO (12:27)
== END 2022-07-23 13:40 | disposition home or self-care (01) ==
PROVIDERS: PCP Family Medicine; Visit Provider Obstetrics & Gynecology
PROC: (CPT 58671; principal; 2022-07-23 09:30)
DX: Z30.2 Encounter for sterilization (principal)
CPT/HCPCS: 58671; A4264; A9270; J0330; J1100; J1170; J1885; J2250; J2405; J2704; J3010; J7120